=== PATIENT | male | born 1975 | race Caucasian/White ===

== ENCOUNTER 2017-06-30 22:11 | Emergency (ER) | payer OTHER, SELFPAY ==
[2017-06-30 22:12] VITALS: BP 121/70; PULSE 80; RESP 15; TEMP 37.1; BMI 33.0
--- NOTE | 2017-06-30 22:38 | CT_ITS ---
CT Head or Brain W/O Contrast INDICATION: TRAUMA/HEMATOMA TO FOREHEAD COMPARISON: None TECHNIQUE: Noncontrast axial CT examination of the brain. Radiation dose optimization applied. FINDINGS: The ventricular system is normal in size and symmetric. The cortical sulci, sylvian fissures, and basal cisterns are well seen. The bush-white matter junction is distinct. There is no evidence of acute intracranial hemorrhage, mass effect, midline shift, or abnormal extra-axial collection. The calvarium is intact . Frontal subcutaneous soft tissue swelling is noted. Polypoid mucosal thickening is present in the maxillary sinuses and there is partial opacification of the ethmoid sinuses. Mastoid air cells are clear. CT/Brain/Head without Contrast IMPRESSION: No evidence of acute intracranial abnormality by noncontrast CT. Frontal Attending soft tissue swelling. Paranasal sinus disease. at 2320 Reported and signed by: Anny Selby MD Electronically Signed: Anny Selby MD at 22:18 EST Tel , Service support ,
[2017-06-30 23:39] LABS: Amphetamine Urine VISTA NEGATIVE (<1000 ng/mL); Barbiturate Urine VISTA NEGATIVE (< 200 ng/mL); Benzodiazepine Urine VISTA NEGATIVE (< 200 ng/mL); Cocaine Urine VISTA NEGATIVE (< 300 ng/mL); Ecstacy Urine VISTA NEGATIVE (< 500 ng/mL); Methadone Urine VISTA NEGATIVE (< 300 ng/mL); PCP Urine VISTA NEGATIVE (< 25 ng/mL); THC Urine VISTA NEGATIVE (< 50 ng/mL); Vista UDS pH Range 7
[2017-06-30 23:46] VITALS: RESP 16
[2017-07-01] VITALS (7 sets, daily range): BP systolic 126–159; BP diastolic 75–89; PULSE 76–108; RESP 14–18; O2SAT 93–100
[2017-07-01] LABS: Absolute Lymphocyte Count 1.52 X10^3/ul (0.83-4.51); Absolute Neutrophil Count 4.1 X10^3/uL (2.0-7.7); Basophil# 0.08 X10^3/uL; Basophil% 1.2 % (0-1); Eosinophils% 4.4 % (0-5); Hematocrit 44.3 % (40-54); Hemoglobin 15.5 g/dl (13.0-16.5); Lymphocyte # 1.52 X10^3/ul (4.0); Lymphocyte % 22.5 % (19-41); Mean Corpuscular Hgb 33.6 pg (27.0-32.0); Mean Corpuscular Volume 96.1 fL (80-94); Mean Platelet Vol. 9.8 fl (6.2-12.0); Monocyte# 0.77 X10^3/uL; Monocyte% 11.4 % (0-10); Neutrophil # 4.08 X10^3/uL (2.7-7.7); Neutrophil % 60.4 % (47-70); Platelet Count 256 K/mm3 (150-450); RBC Distribution Width CV 13.9 % (11.6-14.6); RBC Distribution Width SD 47.4 fl (35.1-43.9); Red Blood Count 4.61 M/mm3 (4.6-6.2); White Blood Count 6.8 K/mm3 (4.4-11.0)
[2017-07-01] MEDS: Ziprasidone IM 20 MG/ML VIAL IM (00:01)
[2017-07-01 00:06] LABS: POSITIVE COUNT NO; POSITIVE DIFFERENTIAL NO; POSITIVE MORPHOLOGY NO
[2017-07-01 00:21] LABS: Anion Gap 9 (5-15); BUN 15 mg/dL (7-18); BUN/Creat Ratio 18.1 RATIO (10-20); Chloride 107 mmol/L (98-107); Creatinine, Serum 0.83 mg/dL (0.70-1.30); EST Glomerular Filtration Rate 109 mL/min (>60); Est Glom Filt Rate - Afr Amer 132 mL/min (>60); Estimated Creatinine Clearance 123.38 ml/min; Glucose 105 mg/dL (74-106); Potassium 3.8 mmol/L (3.5-5.1); Sodium Level 144 mmol/L (136-145)
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
--- NOTE | 2017-07-01 10:44 | ED.RN ---
CALLED COUNSELING CENTER; REQUESTED CRISIS CALL US IN REGARD TO PT
--- NOTE | 2017-07-01 11:16 | ED.RN ---
LISANDRO WITH CRISIS CALLED BACK SHE IS AT THE [facility] AND WILL BE HERE SOON SHE CAN
== END 2017-07-01 12:36 | disposition home or self-care (01) ==
LOC: ED 22:47
PROVIDERS: Emergency Medicine; Emergency Provider Emergency Medicine
DX: R45.851 Suicidal ideations (principal); F10.129 Alcohol abuse with intoxication, unspecified; S00.83XA Contusion of other part of head, initial encounter; Y90.8 Blood alcohol level of 240 mg/100 ml or more; X58.XXXA Exposure to other specified factors, initial encounter; Y93.9 Activity, unspecified; Y92.9 Unspecified place or not applicable; Y99.9 Unspecified external cause status
CPT/HCPCS: 36415; 70450; 80048; 80307; 80320; 85025; 96372; 99283; G0480; J3486